=== PATIENT | male | born 1960 | race Caucasian/White ===

== ENCOUNTER 2024-12-02 08:14 | Outpatient (CLI) | payer OTHER, MEDICARE, SELFPAY ==
--- NOTE | ~2024-12-02 | CT_ITS ---
CT facial bones wo con Ordering provider: Rome Baeur History: . K05.219 - Aggressive periodontitis, localized, unspecifie... . Comparison: None. Technique: Thin slice axial CT of the facial bones was performed without contrast. Coronal and sagit renee reformatted images were also obtained. . Automated exposure control and iterative reconstruction technique were employed. The dose-length product was 533.86 mGy-cm. FINDINGS: PARANASAL SINUSES: Left ethmoid sinus disease. Bilateral maxillary sinus disease. Right sphenoid sinu s disease. Obliteration of the right ostiomeatal complex by mucosal thickening. BONES: No facial fracture including no nasal bone fracture. No definite periodontitis seen in the man dibles. ORBITS AND SUPERFICIAL SOFT TISSUES: The optic globes and orbits are normal. The superficial soft tis sues are normal. VISUALIZED MASTOIDS: Well aerated. LIMITED VISUALIZED BRAIN PARENCHYMA: Normal. Multilevel facet joint disease. IMPRESSION: No definite abnormality seen. Pansinusitis. Reviewed, dictated and finalized at location A.
--- OUTSIDE RECORDS SUMMARY | 2024-12-02 08:17 | XMS_ITS | Referral Summary ---
Author Organization [facility] Address [address] [place] [address] Care Team Providers Care Automobile Rental Agent Name Role Phone Rome Bauer MD Primary Care Provide r Allergies No known active allergies Medications amoxicillin 500 mg capsule Take 500 mg by mouth as needed Dental Procedures 1 Active lisinopriL (PRINIVIL,ZESTR IL) 5 mg tabletIndicatio ns:hypertension Take 5 mg by mouth every morning 1 Active Procto-Med HC 2.5 % rectal creamIndication s:Hemorrhoids Insert into the rectum as needed 1 Active metFORMIN (GLUCOPHAGE) 500 mg tabletIndicatio ns:type 2 diabetes mellitus Take 500 mg by mouth 2 (two) times a day with meals 1 Active simvastatin (ZOCOR) 10 mg tabletIndicatio ns:hyperlipidem ia Take 10 mg by mouth every morning 1 Active multivitamin with iron-mineral tabletIndicatio ns:Mineral Deficiency Prevention,Jazmyne min Deficiency Prevention Take 1 tablet by mouth every morning Active cholecalciferol (VITAMIN D-3) 2000 unit capsule Take 2,000 Units by mouth every morning Active kdewynlc-znw-zy ondroit-vit D3 750 mg-125 mg -600 mg tablet Take 2 tablets by mouth every morning Active aspirin 81 mg enteric coated tabletIndicatio ns:prevention of thrombosis Take 1 tablet (81 mg total) by mouth daily for 14 days 14 tablet 1 Active HYDROcodone-polo taminophen (NORCO) 5-325 mg per tabletIndicatio ns:Pain Take 1 tablet by mouth every 6 (six) hours as needed for pain 28 tablet 1 Active Active Problems Problem Noted Date Diagnosed Date Varus deformity, 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 4 or more times a week 05/08/2021 Q2: How many drinks containi ng alcohol do you have on a typical day when you are drinking? 7 to 9 Q3: How often do you have si x or more drinks on one occasion? 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 Gender Identity Not on file Sexual Orientation Not on file Last Filed Vital Signs Vital Sign Reading Time Taken Comments Blood Pressure 147/86 05/09/2021 10:41 AM CDT Pulse 68 05/09/2021 10:41 AM CDT Temperature 37.1 C (98.7 F) 05/09/2021 7:17 AM CDT Respiratory Rate 16 05/09/2021 7:17 AM CDT Oxygen Saturation 98% 05/09/2021 10:41 AM CDT Inhaled Oxygen Concentration - - Weight 84.8 kg (187 lb) 05/08/2021 6:40 AM CDT Height 170.2 cm (5' 7 ) 05/08/2021 6:40 AM CDT Body Mass Index 29.29 05/08/2021 6:40 AM CDT Plan of Treatment Not on file Medical Devices Implanted Type Area Machine Skiver Device Identifier Shelf Expiration Date Model / Serial / Lot Synthes 710.047.97s Substitute Bone Graft [id number] Chronos Btcp Void Filler - [id number] Implanted:Qty: 1 on 05/08/2021 by Jose Manuel Biswas MD at [facility] Left: Tibia Synthes I 710.047.9 7S / / [id number] Synthes 710.051.97s Chronos [id number] Void Filler Wedge Osteoconductive Resorbable - [id number] Implanted:Qty: 1 on 05/08/2021 by Jose Manuel Biswas MD at [facility] Left: Tibia Synthes I [id number] 06/10/2025 710.051.9 7S / / [id number] Synthes 02.112.205 Lcp Combi 90mm 5 Hole 4 Lock Tibia Distal T Plate Bone Stainless - [id number] Implanted:Qty: 1 on 05/08/2021 by Jose Manuel Biswas MD at [facility] Left: Tibia Synthes I 02.112.20 5 / / Synthes 204.848 3.5mm 6mm 48mm 2.5mm Self Tap Small Hexagonal Socket Low Profile - [id number] Implanted:Qty: 1 on 05/08/2021 by Jose Manuel Biswas MD at [facility] Left: Tibia Synthes I 204.848 / / Synthes 212.112 3.5mm 2.9mm 32mm Self Tap Lock Stardrive Conical Head T15 Full - [id number] Implanted:Qty: 1 on 05/08/2021 by Jose Manuel Biswas MD at [facility] Left: Tibia Synthes I 212.112 / / Synthes 212.113 3.5mm 2.9mm 34mm Self Tap Lock Stardrive Conical Head Pelvis T15 - [id number] Implanted:Qty: 1 on 05/08/2021 by Jose Manuel Biswas MD at [facility] Left: Tibia Synthes I 212.113 / / Synthes 212.123 3.5mm 2.9mm 55mm Self Tap Lock Stardrive Conical Head Pelvis Full - [id number] Implanted:Qty: 2 on 05/08/2021 by Jose Manuel Biswas MD at [facility] Left: Tibia Synthes I 212.123 / / Synthes 212.121 3.5mm 2.9mm 50mm Self Tap Lock Stardrive Conical Head T15 Full - [id number] Implanted:Qty: 1 on 05/08/2021 by Jose Manuel Biswas MD at [facility] Left: Tibia Synthes I 212.121 / / Synthes 212.136 3.5mm 2.9mm 46mm Self Tap Lock Stardrive Conical Head T15 Full - [id number] Implanted:Qty: 1 on 05/08/2021 by Jose Manuel Biswas MD at [facility] Left: Tibia Synthes I 212.136 / / Explanted Type Area Machine Skiver Device Identifier Shelf Expiration Date Model / Serial / Lot [employer] [id number] Sylvester .062in 9in Trocar Point One End Orthopedic Wire - [id number] Explanted:Qty: 6 on 05/08/2021 by Jose Manuel Biswas MD at [facility] Left: Tibia [employer] [id number] S / / Insurance [facility] MEDICARE [facility] MEDICARE MEDICARE [facility] Advance Directives For more information, please contact: [phone] Documents on File Type Date Recorded Patient Blood Bank Technician Expl anation ADVANCE DIRECTIVE 05/10/2021 9:23 AM TAYLOR R OF [employer] * Full Code (Latest Code Status on File) Date Activated Date Inactivated Comments 05/08/2021 1:27 PM 05/09/2021 6:04 PM Care Teams Automobile Rental Agent Relationship Specialty Start Date End Date Rome Bauer MD [address] [place] [address] PCP - General Emergency Medicine 03/16/18
--- OUTSIDE RECORDS SUMMARY | 2024-12-02 08:17 | XMS_ITS | Clinical Summary ---
Author Organization [facility] Address [address] [place] [address] Care Team Providers Care Cycle Manager Name Role Phone Rome Bauer MD Primary [...] 2,000 Units by mouth every morning Active mwukqqeq-pzo-fr ondroit-vit D3 750 mg-125 mg -600 mg [...] (04/08/2021): Added automatically from request for surgery [id number] Immunizations Immunization Administration Dates Next Due Pfizer SARS-CoV-2 Monovalent Vaccination (12+ Yrs) PURPLE 01/06/2021,12/14/2020 Surgical History Surgery Date Site/Laterality Comments KNEE SURGERY JOINT REPLACEMENT Right right knee Medical History Medical History Date Comments Asthma Diabetes mellitus (HCC) Hypertension Hypercholesteremia Type 2 diabetes mellitus (HCC) Family History Medical History Relation Name Comments Arthritis Father Hyperlipidemia Father Stroke Father Diabetes Mother Hyperlipidemia Mother Hyperlipidemia Sister Anesthesia problems Neg Hx Relation Name Status Comments Father Mother Sister Social History Tobacco Use Types Packs/Day Years [...] on file 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 Gender Identity Not on file Sexual Orientation Not on file Obstetrics History Last Filed Vital Signs Vital Sign Reading [...] 05/08/2021 6:40 AM CDT Plan of Treatment Health Maintenance Due Date Last Done Comments Colon Cancer Screening-Colonoscopy 1961 Depression Screening 1961 Hepatitis C Screening 1961 Prostate Cancer Screening-PSA 1961 DTaP/Tdap/Td Vaccine (1 - Tdap) 1972 Hepatitis B Screening 1979 Regular Well Visit/Exam 18-64 1979 Zoster Vaccine (1 of 2) 2011 Covid-19 Vaccine (3 2023-2 5 season) 2024 01/06/2021, 12/14/2020 Influenza Vaccine (Season Ended) 2025 Pneumococcal vaccine <65 Aged Out No longer eligible based on patient's age to complete this topic Medical Devices Implanted Type Area Biomedical Equipment Tech Device Identifier Shelf Expiration Date Model / Serial / Lot Synthes 710.047.97s Substitute Bone Graft [id number] Chronos Btcp Void Filler - [id number] Implanted:Qty: 1 on 05/08/2021 by Jose Manuel Biswas MD at [facility] Left: Tibia Synthes I 710.047.9 7S / / [id number] Synthes 710.051.97s Chronos [id number] Void Filler Wedge Osteoconductive Resorbable - [id number] Implanted:Qty: 1 on 05/08/2021 by Jose Manuel Biswas MD at [facility] Left: Tibia Synthes I [id number] 06/10/2025 710.051.9 7S / / [id number] Synthes 02112.205 Lcp Combi 90mm 5 Hole 4 Lock Tibia Distal T Plate Bone Stainless - [id number] Implanted:Qty: 1 on 05/08/2021 by Jose Manuel Biswas MD at [facility] Left: Tibia Synthes I 02.112.20 5 / / Synthes 204.848 3.5mm 6mm 48mm 2.5mm Self Tap Small Hexagonal Socket Low Profile - [id number] Implanted:Qty: 1 on 05/08/2021 by Jose Manuel Biswas MD at [facility] Left: Tibia Synthes I 204.848 / / Synthes 212.112 3.5mm 2.9mm 32mm Self Tap Lock Stardrive Conical Head T15 Full - [id number] Implanted:Qty: 1 on 05/08/2021 by Jose Manuel Biswas MD at [facility] Left: Tibia Synthes I 212.112 / / Synthes 212.113 3.5mm 2.9mm 34mm Self Tap Lock Stardrive Conical Head Pelvis T15 - [id number] Implanted:Qty: 1 on 05/08/2021 by Jose Manuel Biswas MD at [facility] Left: Tibia Synthes I 212.113 / / Synthes 212.123 3.5mm 2.9mm 55mm Self Tap Lock Stardrive Conical Head Pelvis Full - [id number] Implanted:Qty: 2 on 05/08/2021 by Jose Manuel Biswas MD at [facility] Left: Tibia Synthes I 212.123 / / Synthes 212.121 3.5mm 2.9mm 50mm Self Tap Lock Stardrive Conical Head T15 Full - [id number] Implanted:Qty: 1 on 05/08/2021 by Jose Manuel Biswas MD at [facility] Left: Tibia Synthes I 212.121 / / Synthes 212.136 3.5mm 2.9mm 46mm Self Tap Lock Stardrive Conical Head T15 Full - [id number] Implanted:Qty: 1 on 05/08/2021 by Jose Manuel Biswas MD at [facility] Left: Tibia Synthes I 212.136 / / Explanted Type Area Biomedical Equipment Tech Device Identifier Shelf Expiration Date Model / Serial / Lot [employer] [id number] Sylvester .062in 9in Trocar Point One End Orthopedic Wire - [id number] Explanted:Qty: 6 on 05/08/2021 by Jose Manuel Biswas MD at [facility] Left: Tibia [employer] [id number] S / / Insurance [facility] MEDICARE [facility] MEDICARE MEDICARE [facility] Advance Directives For more information, please contact: [phone] Documents on File Type Date Recorded Patient Spool Carrier Expl anation ADVANCE DIRECTIVE 05/10/2021 9:23 AM TAYLOR Power [employer] * Full Code (Latest Code Status on File) Date Activated Date Inactivated Comments 05/08/2021 1:27 PM 05/09/2021 6:04 PM Care Teams Cycle Manager Relationship Specialty Start Date End Date Rome Bauer MD [address] [place] [address] PCP - General Emergency Medicine 03/16/18
== END 2024-12-02 08:15 | disposition home or self-care (01) ==
LOC: ANHIMG 08:15
PROVIDERS: PCP Emergency Medicine; Visit Provider Emergency Medicine
DX: J32.4 Chronic pansinusitis (principal); K05.219 Aggressive periodontitis, localized, unspecified severity
CPT/HCPCS: 70486